=== PATIENT | female | born 1985 | race Two or more races ===

== ENCOUNTER 2016-04-07 19:32 | Emergency (ER) | payer OTHER ==
[2016-04-07 20:15] LABS: SPECIFIC GRAVITY 1.015 (1.001-1.030); URINE BILIRUBIN NEGATIVE (NEGATIVE); URINE BLOOD NEGATIVE (NEGATIVE); URINE GLUCOSE (UA) NEGATIVE (NEGATIVE); URINE LEUKOCYTE ESTERASE NEGATIVE (NEGATIVE); URINE NITRITE NEGATIVE (NEGATIVE); URINE PROTEIN NEGATIVE (NEGATIVE); URINE UROBILINOGEN NORMAL (0-1 mg/dl)
[2016-04-07 20:17] LABS: URINE APPEARANCE CLEAR; URINE COLOR YELLOW
[2016-04-07] MEDS ORDERED: PREDNISONE 20 MG TABLET ONE (20:25)
[2016-04-07] MEDS ORDERED: CYCLOBENZAPRINE HCL 10 MG TABLET ONE (20:25)
[2016-04-07] MEDS ORDERED: IBUPROFEN 800 MG TABLET ONE (20:26)
[2016-04-07 20:27] LABS: HCG,QUALITATIVE URINE NEGATIVE
== END 2016-04-07 20:41 | disposition home or self-care (01) ==
LOC: ED 19:32
DX: M54.5 Low back pain (principal); J45.909 Unspecified asthma, uncomplicated